=== PATIENT | male | born 1950 | race Caucasian/White ===

== ENCOUNTER → 2021-01-26 | Outpatient (CLI) | payer MEDICARE ==
[~2021-01-26] MED LIST: ACET325C4 PO; ATOR20TA PO; BUPIVACAINE MPF 0.25% 10 ML VIAL. ONE; DULO60CA6 PO; HYDR-2761 PO; IOHEXOL 180 MG/ML 10 ML VIAL. ONE; methylPREDNISolone ACETATE 80 MG/ML VIAL. ONE
--- NOTE | 2021-01-26 15:32 | PDOC1 ---
INITIAL PAIN CONSULT DATE OF SERVICE: DOS: DATE: 01/26/21 TIME: 15:24 CHIEF COMPLAINT: Chief Complaint: Right lower extremity pain HISTORY OF PRESENT ILLNESS: 70-year-old male presents history of pain right lower extremity from the gluteus to the knee and into the calf for many years. Patient reports is worse over the last year or so has been treated previously with lumbar epidural steroid injections trigger point injections and physical therapy all without significant improvement this was in 2017. Patient reports he had chiropractic treatment for many years and is currently doing this as well as doing daily exercises none of which would help for a prolonged period of time to decrease the pain. Patient reports now the pain is radiating from the right hip into the posterior thigh into the posterior knee and into the calf as well worse with walking standing also with sitting for prolonged periods especially in a hard chair patient reports it wakes him sleep least once or twice a night can affect his bowel bladder control but no loss of continence is some increased frequency patient reports it does affect his ability walk significantly with pain in the right leg . Patient is been taking hydrocodone which helps decrease the pain as well as stretching. Patient not had any recent diagnostic studies regarding the issue. Patient scribes her pain is constant stabbing sharp throbbing shooting in the low back tingling in the leg with numbness in the leg as well mostly the posterior aspect aching and can feel cold at times as well. PAST MEDICAL HISTORY: PMH: Arthritis, cigarette smoking, skin cancer PREVIOUS SURGERIES: Past Surgical Hx: Anal fissure repair, knee surgery, cataract extractions CURRENT MEDICATIONS: Current Meds: Active Scripts Medications Dose Route/Sig Max Daily Dose Days Date Category Pain Relief (Acetaminophen) 325 Mg Capsule 325 Mg PO 1-2XD 01/26/21 Reported Hydrocodone-Apap 5-325 (Hydrocodone Bit/Acetaminophen) 1 Tab Tablet 1 Tab PO PRN Q6HRS PRN 01/26/21 Reported Lipitor (Atorvastatin Calcium) 20 Mg Tablet 1 Tab PO DAILY 01/26/21 Reported Cymbalta (Duloxetine Hcl) 60 Mg Capsule. 1 Cap PO DAILY 01/26/21 Reported ALLERGIES; Allergies: Coded Allergies: No Known Drug Allergies (Unverified , 01/26/21) FAMILY HISTORY: Family Hx: No major medical problems or conditions that he is aware of. SOCIAL HISTORY: Social Hx: Patient does not drink alcohol does smoke 1 pack of cigarettes daily and has for many years, does not use any illegal illicit recreational drugs lives locally in [facility]. REVIEW OF SYSTEMS: ROS: Positive for those items mentioned in history of present illness, all systems are reviewed, otherwise negative ,and are complete full and well-documented on patient's chart. PHYSICAL EXAM: VS: Blood pressure is 124/72 pulse 63 respirations 18 temperature 97.6 F height is 5 feet 8 inches weight 146 pounds PE: PHYSICAL EXAMINATION: GENERAL: The patient is awake, alert, oriented, appropriate, very pleasant demeanor HEENT: Shows normocephalic, atraumatic. Extraocular movements are intact and symmetrical. Oral cavity: Mucous membranes moist and pink. Dentition is intact. NECK: Shows anterior throat supple without palpable lymphadenopathy noted. Swallow reflex symmetrical. CHEST: Shows normal on inspection. Breath sounds are clear bilaterally, distant but no rales rhonchi or wheezes auscultated. HEART: Shows S1, S2 clear. No murmurs auscultated. ABDOMEN: Soft, nontender, nondistended, obese. No palpable organomegaly is noted. No rebound or guarding demonstrated. BACK: Shows spine grossly in the midline. Normal-appearing cervical lordotic curvature. There is slightly increased thoracic kyphosis, some flattening of the lumbar lordotic curvature. Lumbar paraspinous muscles show symmetrical on inspection, on palpation shows some moderate tenderness diffusely throughout the upper, middle and lower distribution of the paraspinous muscles bilaterally and also into the lower thoracic paraspinous musculature, firm and tender, but without specific trigger points, without radiation of pain. The patient has good rotational motion of the lumbar spine, both laterally as well as extension and flexion without significant difficulty. No tenderness over the spinous processes, sacrum or sacroiliac regions. EXTREMITIES: Lower extremities show deep tendon reflexes 2+ in the patellar and tendo calcaneus tendons. Motor exam is 5 on a scale of 5 with right dorsiflexion, extension, quadriceps and hamstring flexion and 4/5 on the left. Peripheral pulses are 1+ posterior tibial. No peripheral edema is noted bilaterally. Lower extremities are warm and dry to touch, equal in color and appearance. Straight leg raise noted to be negative bilaterally. Gaenslen's and Anurag's maneuvers are negative as well. The patient is able to stand, stand on his toes that difficulty loss of balance walks with a normal-appearing gait for short distance in the office today is not use any assistive devices to ambulate such as canes or walkers. SKIN: Shows warm and dry, good turgor. No edema. No sores, rashes or bruising throughout. IMPRESSION: Impression: 70-year-old male with long history pain right lower extremity in a sciatic distribution consistent with piriformis syndrome. Arthritis Difficulty urinating Cigarette smoking Plan: Options were discussed with the patient including conservative medical management physical therapies interventional techniques. Patient elects interventional techniques. We discussed a right piriformis injection using C- arm fluoroscopic guidance. Risks were discussed including but not limited to bleeding infection possibility of intravascular injection sequelae spread local anesthetic numbness side effects steroid medication exposure fluoroscopy and portals regarding pain control. Patient understands wished to proceed. Patient will return to clinic in approximately 2 weeks for follow-up, was counseled as to return appointment activity level and side effects to be aware of. Under sterile prep and drape patient in the left lateral decubitus position using C-arm fluoroscopic guidance the patient is left posterior hip and gluteus was identified and using a 25-gauge needle, under direct fluoroscopic visualization was advanced into the piriformis muscle on the right side. No paresthesia was elicited, at this time negative aspiration was noted and at this time 1.5 cc of contrast was injected with good local spread within the piriformis distribution without washout was identified. At this time, a solution of 3 cc 0.25% bupivacaine and 80 mg Depo-Medrol was then injected. Patient tolerated procedure well and had no complications. SONY GOMEZ MD January 26, 2021 15:32
== END | disposition home or self-care (01) ==
LOC: PNCL 14:02
PROVIDERS: ATTEND Anesthesiology
DX: M25.551 Pain in right hip (principal); G57.01 Lesion of sciatic nerve, right lower limb; M19.90 Unspecified osteoarthritis, unspecified site; Z79.899 Other long term (current) drug therapy; Z87.891 Personal history of nicotine dependence; Z98.890 Other specified postprocedural states
CPT/HCPCS: 20552; 77002; J1040; J3490; Q9965